=== PATIENT | female | born 1965 | race Caucasian/White ===

== ENCOUNTER 2017-04-09 16:30 | Emergency (ER) | payer OTHER ==
[~2017-04-09] VITALS: Ht 149.9 cm; Wt 63.6 kg
[~2017-04-09 16:30] MED LIST: ABIL5TAB6 PO; HALO5 PO; LIPI40TA PO; NAPR550 PO; PROZ20CA11 PO; ROBA750T3 PO; SYNT100T PO; TAMO20TA4 PO
[2017-04-09 16:46] VITALS: BP 103/54; PULSE 105; RESP 16; TEMP 99; O2SAT 97
[2017-04-09] MEDS ORDERED: SODIUM CHLOR 0.9% 1000 ML INJ 1,000 ML IV ONE (16:46)
[2017-04-09 16:51] VITALS: O2SAT 98
[2017-04-09] MEDS ORDERED: LIPI40TA PO (16:58)
[2017-04-09] MEDS ORDERED: ARIP1TAB11 PO (16:58)
[2017-04-09] MEDS ORDERED: LEVO.1 PO (16:58)
[2017-04-09] MEDS ORDERED: PROZ40CA PO (16:58)
[2017-04-09] MEDS ORDERED: SODIUM CHLORIDE 0.9% FLUSH 10 ML FLUSH IVF PRN (17:00)
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
[2017-04-09 17:38] LABS: AUTOMATED NEUTROPHIL # 7.1 TH/MM3 (1.8-7.7); BASOPHIL # 0.1 TH/MM3 (0-0.2); BASOPHIL % 0.6 % (0.0-2.0); HEMATOCRIT 38.6 % (35.0-46.0); HEMO FLAGS DIFF FINAL; LYMPHOCYTE # 1.3 TH/MM3 (1.0-4.8); MEAN CELL VOLUME 92.2 FL (80.0-100.0); MEAN CORPUSCULAR HEMOGLOBIN 30.2 PG (27.0-34.0); MEAN CORPUSCULAR HGB CONC 32.7 % (32.0-36.0); MONO % 8.9 % (0.0-8.0); NEUT % 76.5 % (16.0-70.0); PLATELET COUNT 217 TH/MM3 (150-450); RED BLOOD COUNT 4.19 MIL/MM3 (4.00-5.30); RED CELL DISTRIBUTION WIDTH 14.5 % (11.6-17.2); WHITE BLOOD COUNT 9.3 TH/MM3 (4.0-11.0)
[2017-04-09 17:55] LABS: ANION GAP 6 MEQ/L (5-15); AST (GOT) 14 U/L (15-37); BICARBONATE 26.9 MEQ/L (21.0-32.0); BLOOD UREA NITROGEN 12 MG/DL (7-18); CHLORIDE 107 MEQ/L (98-107); GLOMERULAR FILTRATION RATE 99 ML/MIN (>89); POTASSIUM 3.8 MEQ/L (3.5-5.1); SODIUM (NA) 140 MEQ/L (136-145)
[2017-04-09 18:00] LABS: ALKALINE PHOSPHATASE 81 U/L (45-117); ALT (GPT) 25 U/L (10-53); TOTAL BILIRUBIN ADULT 0.3 MG/DL (0.2-1.0)
[2017-04-09 18:22] LABS: CREATINE KINASE 76 U/L (26-192)
--- NOTE | 2017-04-10 14:57 | EKG ---
Date Performed: 04/09/2017 Time Performed: 16:47:50 PTAGE: 52 years EKG: SINUS TACHYCARDIA ABNORMAL RHYTHM ECG NO PREVIOUS TRACING DOCTOR: Kaushal Morales Interpretating Date/Time 04/10/2017 14:56:08
== END 2017-04-09 19:10 | disposition home or self-care (01) ==
LOC: NEPC 16:30
DX: F19.10 Other psychoactive substance abuse, uncomplicated (principal); R00.0 Tachycardia, unspecified; Z72.0 Tobacco use
CPT/HCPCS: 80053; 80307; 82550; 84484; 85025; 93005; 96360; 99284; J7030